=== PATIENT | female | born 1965 | race Hispanic/Latino ===

== ENCOUNTER 2023-08-26 06:30 | Emergency (ER) | payer BC ==
[~2023-08-26] VITALS: Ht 162.6 cm; Wt 55.3 kg
[2023-08-26] MEDS ORDERED: IBUP-2070 PO (08:47)
[2023-08-26 09:09] VITALS: BP 112/67; PULSE 61; RESP 16; O2SAT 99
== END 2023-08-26 09:10 | disposition home or self-care (01) ==
LOC: EDH 06:30
DX: S89.91XA Unspecified injury of right lower leg, initial encounter (principal); J45.909 Unspecified asthma, uncomplicated; Z88.2 Allergy status to sulfonamides; Z90.49 Acquired absence of other specified parts of digestive tract; W01.0XXA Fall on same level from slipping, tripping and stumbling without subsequent striking against object, initial encounter; Y93.89 Activity, other specified; Y92.89 Other specified places as the place of occurrence of the external cause; Y99.8 Other external cause status
CPT/HCPCS: 73562